=== PATIENT | female | born 1945 | race Caucasian/White ===

== ENCOUNTER → 2016-07-07 | Outpatient (CLI) | payer MEDICARE, BC ==
[~2016-07-07] MED LIST: AMLODIPINE BESYL5 MG PO; ANTIVERT PO; ATORVASTATIN CA40 MG PO; CIPRO250 MG PO; CITALOPRAM HBR40 MG PO; COLD & FLU SEV1 EACH PO; COZAAR; DRISDOL8000 U/ML PO; EFFEXOR50 MG PO; GLUCOPHAGE500 MG PO; HYDROCHLOROTH12.5 MG PO; KCL; KEFLEX500 M1 PO; LASIX20 MG PO; LEXAPRO PO; LEXAPRO20 MG PO; LIPITOR40 MG PO; LORTAB 10-5001 EACH PO; LORTAB 7.51 TAB DOB; LOSARTAN POTAS100 MG PO; MEDI-MECLIZINE25 M1 PO; METOPROLOL SUC100 MG PO; METOPROLOL SUCC50 MG PO; MOBIC; MOTION SICKNESS25 M4 PO; MULTI-DAY PLUS1 EACH PO; NAPROSYN-EC500 MG PO; NOLVADEX PO; NORCO 10-325 TA1 TAB PO; PERCOCET5/325 PO; PHENERGAN25 MG PO; PLAQUENIL200 MG PO; PROTONIX PO; TAMOXIFEN CITRA20 MG PO; TOPROL XL50 MG PO; VITAMIN D50000 UNIT PO; ZESTRIL40 MG PO; ZOCOR20 MG PO
--- NOTE | ~2016-07-07 | MY8 ---
[facility] A Service of [facility] RADIOLOGY TEXT RESULTS PATIENT: JANETTE HUNTER LOCATION: [facility] : 46 UNIT #: [id number] AGE: [address]: Refugio Magdaleno MD SEX: F ORDER DR: [id number] [facility] [address] [place], [place] [address] [id number] O MR#: [id number] Acc #: [id number] NAME: JANETTE HUNTER. : 1945 SEX: F STUDY DATE/TIME: 07/07/2016 9:46 UNIT: [facility] ROOM: STUDY DESCRIPTION: MY Mammogram Dx Dig Rt Attending Physician: Refugio Magdaleno M.D. Ordering Physician: Refugio Magdaleno M.D. Primary Care Physician: Refugio Magdaleno M.D. MEDICAL IMAGING REPORT This report is preliminary unless electronic signature is present EXAM Unilateral right digital diagnostic mammogram and targeted right breast ultrasound, 07/07/2016 INDICATION 70-year-old female with history of left-sided breast cancer status post mastectomy. Benign biopsy right breast in 2016. The patient reports tenderness in the lateral hemisphere right breast. She denies a palpable abnormality. Symptoms have been present on the right for about 2 months. No family history of breast cancer. TECHNIQUE CC, MLO and true lateral views of the right breast were obtained and reviewed with an FDA-approved CAD device. Targeted ultrasound of the lateral hemisphere in the area of patient pain symptoms was thereafter performed. COMPARISON Mammograms 08/01/2015, 07/17/2015, 06/27/2015 and 06/25/2014. FINDINGS MAMMOGRAPHIC FINDINGS: Surgical scar marker present on the right. Breast parenchyma is composed of scattered fibroglandular densities. The pattern is unchanged. There is no new dominant nodule, mass or suspicious cluster of microcalcifications. There is some new fat necrosis in the posterior upper inner quadrant right breast at the site of the recent excisional biopsy/lumpectomy. Benign-appearing axillary node on the right unchanged. Targeted ultrasound of the right breast was then performed in the area of patient's complaint. ULTRASOUND FINDINGS RIGHT BREAST: The patient was initially scanned independently by the technologist and then rescanned in my presence. Imaging was performed from the 7 o'clock to the 10 o'clock positions in [facility] A Service of [facility] RADIOLOGY TEXT RESULTS PATIENT: JANETTE HUNTER LOCATION: [facility] : 46 UNIT #: [id number] AGE: [address]: Refugio Magdaleno MD SEX: F ORDER DR: the right breast. There is no ultrasound abnormality. No cystic or solid lesion or persistent area of abnormal shadowing. Imaging findings between modalities are concordant. Absent new or worsening symptoms in the right breast, the patient should return for repeat mammogram in 1 year. Findings and recommendations were discussed with the patient. She voiced understanding and agreement. IMPRESSION 1. Benign postoperative changes in the right breast. Interval development of a small focus of fat necrosis at the site of the most recent surgery. 2. There is no mammographic or ultrasound correlate for the patient's complaint of pain symptoms on the right. Clinical considerations to determine additional imaging at this point. 3. Otherwise benign findings in the right breast. Return to an annual mammography regimen is recommended. See discussion above. Patients over the age of 40 are entered into a reminder system with target due date for the next mammogram. A result letter will also be sent to the patient. BIRADS: 2 Benign Finding Dictated by... Marc Pavon M.D. THIS IS AN ELECTRONICALLY VERIFIED REPORT Marc Pavon M.D. at 07/07/2016 4:55 PM Favian TD: 07/07/2016 14:29 JOB #: [id number] MEDICAL IMAGING REPORT COPY
--- NOTE | ~2016-07-07 | US24 ---
[facility] A Service of [facility] RADIOLOGY TEXT RESULTS PATIENT: JANETTE HUNTER LOCATION: [facility] : 47 UNIT #: [id number] AGE: [address]: Refugio Magdaleno MD SEX: F ORDER DR: [id number] [facility] [address]. [place], [place] [address] [id number] O MR#: [id number] Acc #: [id number] NAME: JANETTE HUNTER : 1945 SEX: F STUDY DATE/TIME: 07/07/2016 10:03 UNIT: [facility] ROOM: STUDY DESCRIPTION: US Breast Unilateral Attending Physician: Refugio Magdaleno M.D. Ordering Physician: Refugio Magdaleno M.D. Primary Care Physician: Refugio Magdaleno M.D. MEDICAL IMAGING REPORT This report is preliminary unless electronic signature is present EXAM Targeted ultrasound of the right breast, 07/07/2016. INDICATION Correlation with diagnostic mammogram same date. FINDINGS Please see report from the diagnostic mammogram of the right breast same date. Patients over the age of 40 are entered into a reminder system with target due date for the next mammogram. A result letter will also be sent to the patient. BIRADS: 2 Benign finding. Dictated by... Marc Pavon M.D. THIS IS AN ELECTRONICALLY VERIFIED REPORT Marc Pavon M.D. at 07/07/2016 4:55 PM NANCY/brandon TD: 07/07/2016 14:31 JOB #: [id number] MEDICAL IMAGING REPORT COPY
== END | disposition home or self-care (01) ==
LOC: CMAM 09:14
DX: N64.4 Mastodynia (principal); N64.1 Fat necrosis of breast; Z98.890 Other specified postprocedural states
CPT/HCPCS: 76641; G0206

== ENCOUNTER → 2016-11-11 | Day surgery (SDC) | payer MEDICARE, BC ==
--- NOTE | ~2016-11-11 | OR ---
Unit #: [id number] #: [id number] Patient: JANETTE HUNTER [id number] [address] [place], [place] [address] [id number] O MR#: [id number] NAME: JANETTE HUNTER ROOM: Date of Procedure: 11/11/2016 Admission Date: 11/11/2016 Surgeon: Edmund Dee Jr., M.D. : 1945 Attending Physician: Edmund Dee Jr., M.D. Referring Physician: Edmund Dee Jr., M.D. Primary Care Physician: Refugio Magdaleno M.D. OPERATIVE REPORT INDICATIONS FOR PROCEDURE The patient is a 71-year-old white female, who has had a previous mastectomy, who has developed scar tissue, it is painful and tender to the touch in the left axillary area posteriorly. Her arm rubs on this area and cause a lot of irritation and she also has a small papilloma of the left buttock. It was felt this papilloma should be removed since has been bobbing or as well and the scar tissue from the lateral aspect of the mastectomy scar should be removed under local anesthesia. She is brought in this time at her request for this procedure. She understands the procedure including the risks, including that of chronic pain and recurrence of her scar tissue, and consents. PREOPERATIVE DIAGNOSES Painful scar tissue, left axilla with a benign papilloma of the left buttock. POSTOPERATIVE DIAGNOSES Painful scar tissue, left axilla with a benign papilloma of the left buttock. ANESTHESIA 1% Xylocaine with epinephrine locally. PROCEDURES PERFORMED Excision of papilloma of the left buttock followed by excision of scar tissue of the left axilla. DESCRIPTION OF PROCEDURE The patient was positioned in the right lateral decubitus position. After being prepped and draped in routine fashion, she was anesthetized locally in the area of the papilloma of the left buttock and this was done with 1% Xylocaine with epinephrine. A small elliptical incision was made around the base of the papilloma and after it was slowly removed, it was sent to pathology. Hemostasis was achieved with Bovie cautery and the skin edges were approximated with 2 stainless steel skin clips. An elliptical incision was made around the scar tissue of the left axilla. After it was locally anesthetized with 1% Xylocaine with epinephrine, this was carried down through the skin and subcutaneous tissue with a #10 blade scalpel down to the deeper subcutaneous tissue. It was completely removed and sent to pathology. Hemostasis was achieved with Bovie cautery. The deeper tissue approximated with interrupted 3-0 Vicryl sutures. Skin edges approximated with stainless-steel skin clips and skin stapling Unit #: [id number] #: [id number] Patient: JANETTE HUNTER. Sterile dressings were applied externally. Estimated blood loss for both procedures minimal, less than 10 mL. The patient received no fluids during the procedure. Sponges and instrument counts were correct x3. No drains used. No complications. The patient was taken to the discharge area with stable vital signs for discharge in satisfactory condition. Dictated by... Edmund Dee Jr., M.Jose Ramon COLMENARES/dano TD: 11/11/2016 14:54 JOB #: [id number] OPERATIVE REPORT Page 1 of 1 X Edmund Dee MD X PROCEDURE OPERATIVE NOTE
== END | disposition home or self-care (01) ==
LOC: CSUR 10:21
DX: L90.5 Scar conditions and fibrosis of skin (principal); L72.0 Epidermal cyst; K21.9 Gastro-esophageal reflux disease without esophagitis; M19.90 Unspecified osteoarthritis, unspecified site; I10 Essential (primary) hypertension; E78.00 Pure hypercholesterolemia, unspecified; M06.9 Rheumatoid arthritis, unspecified; G47.30 Sleep apnea, unspecified; E11.9 Type 2 diabetes mellitus without complications; Z90.711 Acquired absence of uterus with remaining cervical stump; Z90.49 Acquired absence of other specified parts of digestive tract; Z90.12 Acquired absence of left breast and nipple; Z88.2 Allergy status to sulfonamides; Z79.52 Long term (current) use of systemic steroids; Z79.84 Long term (current) use of oral hypoglycemic drugs; Z79.899 Other long term (current) drug therapy; Z86.2 Personal history of diseases of the blood and blood-forming organs and certain disorders involving the immune mechanism; Z86.010 Personal history of colon polyps
CPT/HCPCS: 82947; 88304; 88305

== ENCOUNTER → 2016-11-26 | Outpatient (CLI) | payer MEDICARE, BC ==
--- NOTE | ~2016-11-26 | ST ---
Unit #: [id number] #: [id number] Patient: JANETTE HUNTER [id number] [facility]. [place] [id number] [facility]. [place], [place] [address] [id number] O MR#: [id number] NAME: JANETTE HUNTER : 1945 SEX: F STUDY DATE/TIME: 11/26/2016 UNIT: [facility] ROOM: STUDY DESCRIPTION: Attending Physician: Refugio Magdaleno M.D. Referring Physician: Refugio Magdaleno M.D. Primary Care Physician: Refugio Magdaleno M.D. CARDIOLOGY REPORT EXAM Lexiscan Cardiolite stress test. FINDINGS Baseline EKG: Normal sinus rhythm with ventricular rate 77 beats per minute, left atrial abnormality, Q wave noted in V1, slightly prolonged QT. PROCEDURE Lexiscan is a 4-minute test with Lexiscan being injected within the first minute, followed by Cardiolite. EKG during the test was equivocal to baseline. No acute ischemic changes. Patient had no complaints of chest pain, palpitations, or dizziness. Had increased shortness of breath and fatigueness which resolved in recovery phase. Maximum heart rate response was 105 beats per minute with a maximum blood pressure response of 151/84 mmHg. EKG during the test was equivocal to baseline. No acute ischemic changes. Patient had no complaints of chest pain, palpitations, or dizziness. Had increased shortness of breath and fatigueness which resolved in recovery phase. Cardiolite was injected after Lexiscan within the first minute of the test. Radionuclide tests pending. Please correlate with nuclear images. Dictated by... Melania Simpson A.P.R.N. for Michelle Santoyo/ren TD: 11/26/2016 11:06 JOB #: [id number] CARDIOLOGY REPORT Page 1 of 1 X Melania Simpson APRN CARDIOLOGY REPORT
--- NOTE | ~2016-11-26 | TH ---
Unit #: [id number] #: [id number] Patient: JANETTE HUNTER [id number] [address] [address] [id number] O MR#: [id number] NAME: JANETTE HUNTER. : 1945 SEX: F STUDY DATE/TIME: 11/26/2016 UNIT: [facility] ROOM: STUDY DESCRIPTION: Attending Physician: Refugio Magdaleno M.D. Referring Physician: Refugio Magdaleno M.D. Primary Care Physician: Refugio Magdaleno M.D. CARDIOLOGY REPORT EXAM Lexiscan Cardiolite stress test, nuclear portion. PROCEDURE Using technetium 99m labeled Cardiolite, rest and stress SPECT images were obtained. Multiple SPECT images were obtained in various views including horizontal and vertical long axis and short axis views of the left ventricle. Images were obtained by gated SPECT method. The patient was administered 9.94 mCi of Cardiolite at rest. Patient was administered 31.5 mCi of Cardiolite after Lexiscan infusion was completed. On the stress images, there is an extremely small area of mild decreased isotope activity in the lateral wall. The rest images show normal perfusion. Comparing rest and stress images, an extremely small area of possible stress-induced ischemia involving the lateral wall of the left ventricle cannot be ruled out. The left ventricular ejection fraction is calculated to be 91%. There is no focal wall motion abnormality seen. CONCLUSION 1. An extremely small area of possible stress-induced ischemia involving the lateral wall of the left ventricle cannot be ruled out. 2. The left ventricular ejection fraction is calculated to be 91%. 3. There is no focal wall motion abnormality seen. 4. The left ventricular size is very small. 5. Mildly abnormal Lexiscan Cardiolite stress test. Clinical correlation was requested. Dictated by... Michelle Santoyo TD: 11/26/2016 16:12 JOB #: [id number] CC: Refugio Magdaleno M.D. Unit #: [id number] #: [id number] Patient: JANETTE HUNTER CARDIOLOGY REPORT Page 1 of 1 X Gely Jacobs MD <ELECTRONICALLY SIGNED> 01/13/17 [facility] CARDIOLOGY REPORT
== END | disposition home or self-care (01) ==
LOC: CNUC 08:34
DX: R07.9 Chest pain, unspecified (principal); R06.09 Other forms of dyspnea
CPT/HCPCS: 78452; 93017; A9500; J2785